=== PATIENT | female | born 1995 ===

== ENCOUNTER 2019-05-02 11:33 | Outpatient (RCR) | payer OTHER | END 2019-05-15 | disposition home or self-care (01) | LOC: WCC 11:33 | DX: L91.0 Hypertrophic scar (principal); Z88.0 Allergy status to penicillin; Z88.8 Allergy status to other drugs, medicaments and biological substances; Z83.3 Family history of diabetes mellitus ==

== ENCOUNTER 2019-07-04 05:17 | Day surgery (SDC) | payer OTHER ==
[~2019-07-04] VITALS: Ht 152.4 cm; Wt 45.4 kg
[2019-07-04] VITALS (8 sets, daily range): BP systolic 105–119; BP diastolic 60–84
[~2019-07-04 05:17] MED LIST: NKM
[2019-07-04] MEDS ORDERED: Lidocaine 1% Plain 30 ml INJ ONE (07:10)
[2019-07-04] MEDS ORDERED: Lidocaine 1% 10mg/ml/Epi 0.005mg/ml 30ml vial INJ ONE (07:10)
--- NOTE | 2019-07-04 07:21 | Pre-Procedure Note/Attestation ---
Pre-Procedure Note/Attestation Complete Prior to Procedure Planned Procedure: left Procedure Narrative: Excision of left ear keloid with closure Indications for Procedure Pre-Operative Diagnosis: Left ear keloid Attestation I attest that I discussed the nature of the procedure; its benefits; risks and complications; and alternatives (and the risks and benefits of such alternatives ), prior to the procedure, with the patient (or the patient's legal insurance verification representative). I attest that, if there was a reasonable possibility of needing a blood transfusion, the patient (or the patient's legal insurance verification representative) was given the [facility] standardized written summary, pursuant to the Sourav Stephani Blood Safety Act ([place] Health and Safety Code # 1645, as amended). I attest that I re-evaluated the patient just prior to the surgery and that there has been no change in the patient's H&P, except as documented below: Bert Madison MD Jul 04, 2019 07:21
[2019-07-04] MEDS ORDERED: Clindamycin 600mg 50 ML IV ONE (07:23)
[2019-07-04] MEDS ORDERED: Midazolam 2mg/2ml Inj ONE (07:30)
[2019-07-04] MEDS ORDERED: Sterile Water Irrig 1000ml IRRIG ONE (07:30)
[2019-07-04] MEDS ORDERED: LR 1000ml ONE (07:30)
[2019-07-04] MEDS ORDERED: NS Irrig 1000ml IRRIG ONE ×2 (07:35→07:48)
[2019-07-04] MEDS ORDERED: fentaNYL 100 mcg/2 mL IV ONE (07:54)
--- NOTE | 2019-07-04 08:09 | Consultation ---
Consult Note Consult Note Anesthesia consult: Discussed with Dr. Madison regarding the plan of care. The case will be local case with moderate sedation with RN. Anesthesia will standby to manage MH. VSS at this time. Consent was obtained fro Lidya Torres CRNA Jul 04, 2019 08:09
--- NOTE | 2019-07-04 08:32 | Anethesia Preoperative Eval ---
Anesthesia Pre-op PMH/ROS General Date of Evaluation: Jul 04, 2019 Time of Evaluation: 07:30 Anesthesiologist: mai ASA Score: ASA 2 Mallampati Score Class I : Soft palate, uvula, fauces, pillars visible Class II: Soft palate, uvula, fauces visible Class III: Soft palate, base of uvula visible Class IV: Only hard plate visible Mallampati Classification: Class II Surgeon: babs Diagnosis: Keloid Surgical Procedure: excision of keloid scar Anesthesia History: MH - family hx; family had cardiac arrest Family History: no anesthesia problems Allergies: Coded Allergies: SUCCINYLCHOLINE (Verified Allergy, Severe, HYPERTHERMIA, 07/01/19) AMOXICILLIN (Verified Allergy, Unknown, 07/01/19) PENICILLINS (Verified Allergy, Unknown, 07/01/19) Medications: see eMAR Patient NPO?: Yes NPO Date: Jul 04, 2019 NPO Time: 00:01 Past Medical History Cardiovascular: Denies: HTN, CAD, AL, valve dz, arrhythmia, other Pulmonary: Reports: asthma; Denies: COPD, OTILIO, other Gastrointestinal/Genitourinary: Denies: GERD, CRI, ESRD, other Neurologic/Psychiatric: 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 Exam Physician Exam Last Vital Signs Date Time Temp Pulse Resp B/P (MAP) Pulse Ox O2 Delivery O2 Flow Rate FiO2 07/04/19 05:54 97.7 81 20 112/68 99 Room Air Constitutional: NAD Neurologic: CN 2-12 intact Cardiovascular: RRR Respiratory: CTA Gastrointestinal: S/NT/ND Airway Exam Mallampati Classification 2 Mallampati Score: Class II MO: full ROM: full Dentures: no upper, no lower Anesthesia Pre-op A/P Labs Urine Test Test 07/04/19 05:30 Urine HCG, Qualitative Negative (NEGATIVE) Studies Pre-op Studies: EKG - sr Risk Assessment & Plan Plan: local vs Mac Status Change Before Surgery: No Pre-Antibiotics Drug: cleocin Given Within 1 Hr of Incision: Yes Time Given: 07:30 Lidya Rosario CRNA Jul 04, 2019 08:32
[2019-07-04] MEDS ORDERED: fentaNYL 100 mcg/2 mL IV PRN (08:45)
[2019-07-04] MEDS ORDERED: Bacitracin Oint 15gm Tube TOPIC ONE (09:15)
--- NOTE | 2019-07-04 09:48 | Brief Operative Note ---
Immediate Post Operative Note Operative Note Pre-op Diagnosis: Left ear keloid Procedure: Resection of left earlobe keloid with closure Surgeon: Los MCGINNIS Anesthesiologist: Lidya Rosario Anesthesia: local Specimen: yes Complications: none Condition: stable Fluids: IVF Estimated Blood Loss: minimal Drains: none Implant(s) used?: No Bert Madison MD Jul 04, 2019 09:48
--- NOTE | 2019-07-04 14:55 | 48 Hour Post Anesthesia Eval ---
Post Anesthesia Evaluation Procedure: excision of ear keloid Date of Evaluation: Jul 04, 2019 Time of Evaluation: 14:54 Blood Pressure Systolic: 107 0: 72 Pulse Rate: 82 Respiratory Rate: 14 O2 Sat by Pulse Oximetry: 99 Airway: patent Nausea: No Vomiting: No Hydration Status: adequate Cardiopulmonary Status: stable Mental Status/LOC: patient returned to baseline Follow-up Care/Observations: na Post-Anesthesia Complications: none Follow-up care needed: N/A Lidya Rosario [facility] Jul 04, 2019 14:55
--- NOTE | 2019-07-04 14:56 | Immediate Post-Op Evaluation ---
Immediate Post-Op Evalulation Immediate Post-Op Evalulation Procedure: excision of ear keloid Date of Evaluation: Jul 04, 2019 Time of Evaluation: 09:25 IV Fluids: 300 Blood Pressure Systolic: 110 Blood Pressure Diastolic: 60 Pulse Rate: 105 Respiratory Rate: 14 O2 Sat by Pulse Oximetry: 99 Temperature (Fahrenheit): 97 - 5 Nausea: No Vomiting: No Complications none Patient Status: awake, reacts, patent Hydration Status: adequate Drug: clecin Given Within 1 Hr of Incision: Yes Time Given: 07:35 Lidya Rosario CRNA Jul 04, 2019 14:56
--- NOTE | 2019-07-04 16:15 | Operative Note - Dictated ---
DATE OF OPERATION: 07/04/2019 SURGEON: Bert Madison M.D. ANESTHESIOLOGIST: Lidya Rosario CRNA. PREOPERATIVE DIAGNOSIS: Recurrent left earlobe keloid. POSTOPERATIVE DIAGNOSIS: Recurrent left earlobe keloid. OPERATION: Resection of left earlobe keloid with closure. ANESTHESIA: 10 mL of 1% lidocaine with 1:100,000 epinephrine. OPERATIVE INDICATIONS: This is a 23-year-old female who has had a prior history of keloids in the left earlobe. She undergone resection of this by me over 10 years ago. She has had done well for years and then developed a recurrence. She failed a series of Kenalog injection trials, and so decision was made to perform surgery to excise knowing that the risks of recurrence are high. Once she was medically cleared, she was scheduled for elective surgery. OPERATIVE PROCEDURE: The patient was seen in the preop area and the operative plan has been discussed and agreed upon. She was taken back to the operating room, placed on the operating table in supine position. Once SCDs were placed on bilateral extremities, a time-out was performed and then 10 mL of 1% lidocaine with 1:100,000 epinephrine was injected at the base of the ear as an ear block. At this point, the left ear, neck, and lateral face were prepped and draped in usual sterile fashion. Once anesthesia was confirmed, markings were made being careful to leave enough skin for closure. Then skin incision was then made with a #15 blade and dissection proceeded down using the blade the final plane between the scar tissue and the normal tissue. This was difficult in multiple areas, but potentially the keloid was circumferentially dissected and resected off from the [place] tissue. Taken off the field in one piece. Then, palpation revealed two other areas where there was still some scar tissue and these were resected with a #15 blade. At this point, hemostasis was carefully obtained with electrocautery and then the area was irrigated with saline. A 5-0 plain gut suture was used to tailor tack the defect in the midline and then markings were made to resect more skin to achieve a more pleasing contour. The skin was excised and the incision was then closed with a combination of 5-0 plain and 6-0 plain suture in a simple interrupted fashion. The contour of the earlobe was very good and on palpation felt nice and soft. The dressings were then applied, which included antibiotic ointment over the incision followed by Xeroform, gauze, and Kerlix. The patient was then taken to the recovery room in stable condition. There were no complications. EBL was minimal. Total resected was 4 cm. Final incision length was 4.5 cm. The patient is stable. Bert Madison M.D. DR: CATRACHO JOB#: [id number] CC:
== END 2019-07-04 10:40 | disposition home or self-care (01) ==
LOC: SUR 05:17
DX: L91.0 Hypertrophic scar (principal); F41.9 Anxiety disorder, unspecified; G40.909 Epilepsy, unspecified, not intractable, without status epilepticus; Z88.0 Allergy status to penicillin; Z88.8 Allergy status to other drugs, medicaments and biological substances
CPT/HCPCS: 11446; 81025; J2250; J3010; 94003; 94150; S0077